=== PATIENT | female | born 1995 | race Hispanic/Latino ===

== ENCOUNTER 2020-06-15 12:59 | Emergency (ER) | payer OTHER, SELFPAY ==
--- NOTE | ~2020-06-15 | XR_ITS ---
EXAMINATION: XR ankle LT min 3V DATE: 06/15/2020 13:57 INDICATION: Left ankle injury and swelling and pain. TECHNIQUE: 4 views of left ankle were obtained. COMPARISON: None. FINDINGS: Bone alignment is normal. No fracture. There is mild osteoarthritis of talonavicular joint. There is an enthesophyte at plantar aspect of calcaneal tuberosity. Lateral ankle soft tissue swelli ng is noted. IMPRESSION: 1. Mild osteoarthritis of talonavicular joint. Reviewed, dictated and finalized at location B.
--- NOTE | ~2020-06-15 | CT_ITS ---
EXAMINATION: CT abdomen pelvis w con EXAM DATE: 06/15/2020 15:49 INDICATION: Abdominal pain nausea vomiting diarrhea. Sore throat. TECHNIQUE: Spiral CT of the abdomen and pelvis was performed following intravenous injection of 100 m L Omnipaque 350. Axial, coronal and sagittal images were reviewed. The dose-length product (DLP) fo r this examination was 245.02 mGy-cm. The exposure was tailored according to patient size (auto mA e xposure control), and iterative reconstruction (ASIR) was used as additional dose reduction technique . Comparison is made to prior examination from 11/25/2018. FINDINGS: The liver, spleen, adrenal glands and pancreas are unremarkable. Gallbladder is unremarkab le. No biliary obstruction. Portal and splenic veins are patent. Kidneys enhance symmetrically. T here is no hydronephrosis. The uterus and ovaries are unremarkable, no adnexal mass. The bladder i s unremarkable. There is no retroperitoneal or pelvic lymphadenopathy. The appendix is normal. The stomach and small bowel are unremarkable. Colonic fluid and possible mi ld diffuse colonic wall thickening, possible mild enterocolitis. No free intraperitoneal gas. The heart is normal in size. There are no pericardial or pleural effusions. The lung bases are unremar kable. The bones are unremarkable. IMPRESSION: 1. Possible enterocolitis, clinical correlation. Reviewed, dictated and finalized at location A.
--- NOTE | ~2020-06-15 | XR_ITS ---
EXAMINATION: XR hand LT min 3V DATE: 06/15/2020 13:57 INDICATION: Left hand injury. TECHNIQUE: 3 views of left hand were obtained. COMPARISON: None. FINDINGS: Bone alignment is normal. No fracture. There is mild osteoarthritis of third distal interph alangeal joint. IMPRESSION: 1. No acute fracture. Reviewed, dictated and finalized at location B. IMPRESSION: 1. No acute fracture.
[2020-06-15 13:16] VITALS: PULSE 100; RESP 18; TEMP 37.5; O2SAT 99
[2020-06-15 13:34] LABS: Basophils Percent Auto 0.2 % (0.2-1.2); Eosinophils Absolute Auto 0.1 K/mm3 (0-0.3); Eosinophils Percent Auto 0.5 % (0-4.4); Hematocrit 40.6 % (37.0-47.0); Hemoglobin 13.8 g/dL (12.0-15.0); Immature Granulocyte Absolute 0.04 K/mm3 (0.00-0.031); Immature Granulocyte Percent A 0.3 % (0-0.5); Lymphocytes Absolute Auto 2.52 K/mm3 (0.9-3.2); Lymphocytes Percent Auto 20.6 % (18.3-44.2); Mean Corpuscular Hemoglobin 30.7 pg (26-34); Mean Corpuscular Volume 90.4 fl (80-100); Mean Platelet Volume 10.9 fl (7.4-10.4); Monocytes Absolute Auto 0.9 K/mm3 (0.1-0.6); Monocytes Percent Auto 7.3 % (2.6-8.5); Neutrophils Absolute Auto 8.7 K/mm3 (1.3-6.7); Neutrophils Percent Auto 71.1 % (45.5-73.1); Platelet Count Result 317 k/mm3 (150-375); Red Blood Count 4.49 M/mm3 (4.2-5.4); Red Cell Distribution Width 12.9 % (11.5-14.5); White Blood Count 12.3 K/mm3 (4.5-10.0)
[2020-06-15 13:53] LABS: Alanine Aminotransferase 13 U/L (4-35); Albumin Level 4.6 g/dL (3.5-5.1); Alkaline Phosphatase 62 U/L (38-126); Anion Gap 10 mmol/L (8-16); Aspartate Amino Transferase 31 U/L (14-36); Bilirubin,Total 0.4 mg/dL (0.2-1.3); Blood Urea Nitrogen 6 mg/dL (7-17); Calcium 8.4 mg/dL (8.4-10.2); Carbon Dioxide 22 mmol/L (22-30); Chloride 109 mmol/L (98-107); Estimated CRCL calculation 123 ml/min; Estimated Glomerular Filt Rate > 60; Glucose 100 mg/dL (65-105); Lipase 98 U/L (23-300); Potassium 4.4 mmol/L (3.4-5.0); Sodium 141 mmol/L (137-145)
[2020-06-15 14:07] LABS: Add Urine Microscopic? YES; Appearance Urine Cloudy (Clear); Bacteria Urine Trace /hpf; Bilirubin Urine Negative (Negative); Blood Urine Negative (Negative); Budding Yeast Urine Present /hpf; Color Urine Yellow (Yellow); Glucose Urine UA Negative (Negative); Ketones Urine Negative (Negative); Leukocyte Esterase Ur Negative LEU/UL (Negative); Mucus Urine Rare /lpf; Nitrate Urine Negative (Negative); Protein Urine Negative (Negative); Specific Grav Ur 1.019 (1.001-1.035); Squamous Epithelial Cell Urine Moderate /hpf (Few); Urobilinogen Urine Negative mg/dL (<2.0)
[2020-06-15] MEDS: MORPHINE SULFATE 4 MG/ML INJ IV PUSH (15:13)
--- NOTE | 2020-06-15 16:11 | ED.GENADULT ---
HPI - General Adult General Chief complaint: Abdominal Pain Stated complaint: Multiple Complaints, Anxiety Time Seen by Provider: 06/15/20 14:43 History of Present Illness HPI narrative: Patient is a 24-year-old female who presents the ER with multiple complaints. Patient's first complaint is diarrhea ongoing for last month. Was treated for colitis at an outside hospital with Levaquin. She finished those antibiotics 1/2 to 2 weeks ago. No fevers or chills or sweats. Reports she still continues to have 4 loose stools a day. No blood in her stool. She reports abdominal cramping as well as nausea and vomiting. She reports mild pain in her left lower quadrant. No alleviating factors. She also has history of Sandy's esophagus and is taking a PPI to help control the symptoms. Additionally patient had a trip and fall before coming in and injured her left ankle and fell onto her left wrist. There is no deformity and she is able to ambulate and she has no new numbness or tingling. Related Data Home Medications Medication Instructions Recorded Confirmed dicyclomine mg 06/15/20 omeprazole 06/15/20 ondansetron HCl 06/15/20 Allergies Allergy/AdvReac Type Severity Reaction Status Date / Time milk Allergy Unknown UNKNOWN Verified 06/15/20 14:46 shrimp Allergy Unknown UNKNOWN Verified 06/15/20 14:46 Review of Systems Review of Systems: All systems reviewed & are unremarkable except as noted in HPI and below Constitutional: Constitutional: Denies chills, Denies fever(s) and Denies weakness ENT: Denies nasal congestion and Denies sore throat PMFSH Past Medical History Medical History (Updated 06/15/20 @ 17:37 by Raymond Mason MD) Sandy esophagus Surgical History Surgical History (Updated 06/15/20 @ 17:34 by Raymond Mason MD) H/O colonoscopy History of esophagogastroduodenoscopy (EGD) Social History Social History (Updated 06/15/20 @ 17:34 by Raymond Mason MD) Substance use: never Gender identity (if verbalized by the patient): Female Exam Narrative: Exam Narrative: GENERAL: Anxious-appearing, well-nourished, and in mild distress. HEAD: Normocephalic, atraumatic. CHEST: Clear to auscultation. No respiratory distress. HEART: Regular rate and rhythm. Normal peripheral pulses. ABDOMEN: Soft, tender palpation in left lower quadrant with mild guarding, nondistended, normal active bowel sounds. EXTREMITIES: Mildly tender over left ATFL. No swelling to the left wrist or ankle. Normal range of motion/strength. SKIN: Warm, dry, no rash. NEURO: Alert and oriented x3. PSYCH: Anxious mood with normal thought content. Course Course Emergency Course: Feels much better with Bentyl. Discharge home. Provide a stool sample. Vital Signs Vital signs: Vital Signs Temperature 99.5 F 06/15/20 13:16 Pulse Rate 100 06/15/20 13:16 Respiratory Rate 18 06/15/20 13:16 Pulse Oximetry 99 06/15/20 13:16 Temperature 99.5 F 06/15/20 13:16 Pulse Rate 100 06/15/20 13:16 Respiratory Rate 18 06/15/20 13:16 Pulse Oximetry 99 06/15/20 13:16 Medical Decision Making Vital Signs Vital Signs: Vital Signs Temperature 99.5 F 06/15/20 13:16 Pulse Rate 100 06/15/20 13:16 Respiratory Rate 18 06/15/20 13:16 Pulse Oximetry 99 06/15/20 13:16 Temperature 99.5 F 06/15/20 13:16 Pulse Rate 100 06/15/20 13:16 Respiratory Rate 18 06/15/20 13:16 Pulse Oximetry 99 06/15/20 13:16 Lab Data Result diagrams: 06/15/20 13:28 06/15/20 13:28 Labs: Lab Results 06/15/20 06/15/20 06/15/20 Range/Units 13:28 13:28 13:40 WBC 12.3 H (4.5-10.0) K/mm3 RBC 4.49 (4.2-5.4) M/mm3 Hgb 13.8 (12.0-15.0) g/dL Hct 40.6 (37.0-47.0) % MCV 90.4 (80-100) fl MCH 30.7 (26-34) pg MCHC 34.0 (32-36) g/dl RDW 12.9 (11.5-14.5) % Plt Count 317 (150-375) k/mm3 MPV 10.9 H (7.4-10.4) fl Immature Gran %
[2020-06-15] MEDS: ONDANSETRON INJ 4 MG/2 ML VIAL IV PUSH (17:08)
[2020-06-15] MEDS: DICYCLOMINE HCL INJ 20 MG/2 ML VIAL IM (17:08)
== END 2020-06-15 17:51 | disposition home or self-care (01) ==
PROVIDERS: Emergency Provider Emergency Medicine; PCP Family Medicine
DX: K52.9 Noninfective gastroenteritis and colitis, unspecified (principal); M19.072 Primary osteoarthritis, left ankle and foot; K22.70 Barrett's esophagus without dysplasia
CPT/HCPCS: 36415; 73130; 73610; 74177; 80053; 81001; 81025; 83690; 85025; 96372; 96374; 96375; 99284; J0500; J2270; J2405; Q9967

== ENCOUNTER 2022-01-28 13:07 | Emergency (ER) | payer OTHER, SELFPAY ==
--- NOTE | ~2022-01-28 | CT_ITS ---
EXAMINATION: CT abdomen pelvis w con DATE: 01/28/2022 16:31 INDICATION: Abdominal pain. Vomiting. TECHNIQUE: Computed tomography (CT) of the abdomen and pelvis was performed with 100 mL Omnipaque 350 intravenous contrast. Automated exposure control and iterative reconstruction technique were employe d. The dose-length product was 595.91 mGy-cm. COMPARISON: CT abdomen and pelvis 06/15/2020 FINDINGS: The visualized portions of the lung bases are clear without pneumonia or pleural effusion. The heart size is normal. No pericardial effusion. There is a small sliding hiatal hernia. The liver, gallbladder, spleen, pancreas, adrenal glands, and kidneys are normal. The appendix is normal. The b owel is decompressed. There are no pathologically enlarged lymph nodes. There is no free intraperiton eal fluid. The bones are unremarkable. IMPRESSION: 1. Small sliding hiatal hernia. Reviewed, dictated and finalized at location A.
[2022-01-28 13:08] VITALS: BP 112/69; PULSE 72; RESP 20; TEMP 36.7; O2SAT 100
[2022-01-28 13:31] LABS: Basophils Percent Auto 0.1 % (0.2-1.2); Hematocrit 39.6 % (37.0-47.0); Hemoglobin 13.2 g/dL (12.0-15.0); Immature Granulocyte Absolute 0.05 K/mm3 (0.00-0.031); Immature Granulocyte Percent A 0.3 % (0-0.5); Lymphocytes Absolute Auto 1.12 K/mm3 (0.9-3.2); Lymphocytes Percent Auto 7.8 % (18.3-44.2); Mean Corpuscular HGB Conc 33.3 g/dl (32-36); Mean Corpuscular Hemoglobin 31.4 pg (26-34); Mean Corpuscular Volume 94.1 fl (80-100); Mean Platelet Volume 10.5 fl (7.4-10.4); Monocytes Absolute Auto 0.3 K/mm3 (0.1-0.6); Monocytes Percent Auto 1.8 % (2.6-8.5); Neutrophils Absolute Auto 12.9 K/mm3 (1.3-6.7); Platelet Count Result 320 k/mm3 (150-375); Red Blood Count 4.21 M/mm3 (4.2-5.4); Red Cell Distribution Width 12.2 % (11.5-14.5); White Blood Count 14.4 K/mm3 (4.5-10.0)
[2022-01-28 13:45] LABS: Alanine Aminotransferase 18 U/L (4-35); Albumin Level 4.2 g/dL (3.5-5.1); Alkaline Phosphatase 72 U/L (38-126); Anion Gap 5 mmol/L (8-16); Aspartate Amino Transferase 25 U/L (14-36); Bilirubin,Total 0.2 mg/dL (0.2-1.3); Blood Urea Nitrogen 6 mg/dL (7-17); Calcium 8.2 mg/dL (8.4-10.2); Carbon Dioxide 27 mmol/L (22-30); Chloride 110 mmol/L (98-107); Estimated CRCL calculation 148 ml/min; Estimated Glomerular Filt Rate > 60; Glucose 138 mg/dL (65-110); Lipase 217 U/L (23-300); Potassium 3.7 mmol/L (3.4-5.0); Sodium 142 mmol/L (137-145)
--- NOTE | 2022-01-28 14:50 | ED.ABDPAIN ---
HPI - Abdominal Pain General Chief Complaint: Abdominal Pain Stated Complaint: vomiting, abd. Time Seen by Provider: 01/28/22 14:32 History of Present Illness HPI narrative: 26-year-old female presented to emergency room with complaints of acute onset nausea vomiting diarrhea that began this morning. Patient has a recent history of colitis and Sandy's esophagus that was diagnosed by her GI physician Dr. Bhatia. Patient states that she was admitted at [facility] 4 weeks ago with similar symptoms. States she has been taking Phenergan without relief. Regarding nausea vomiting diarrhea is associated with body aches, headache, abdominal pain. Related Data Home Medications Medication Instructions Recorded Confirmed dicyclomine mg 06/15/20 omeprazole 06/15/20 ondansetron HCl 06/15/20 Allergies Allergy/AdvReac Type Severity Reaction Status Date / Time milk Allergy Unknown UNKNOWN Verified 01/28/22 15:32 shrimp Allergy Unknown UNKNOWN Verified 01/28/22 15:32 Review of Systems Review of Systems: CONSTITUTIONAL: Denies fever, chills, or sweats. EYES: Denies visual changes, redness, or discharge. ENT: Denies rhinorrhea, congestion, sore throat, or otalgia. CARDIOVASCULAR: Denies chest pain, palpitations, or edema. RESPIRATORY: Denies cough or dyspnea. GASTROINTESTINAL: Reports abdominal pain, nausea, vomiting, diarrhea. GENITOURINARY: Denies dysuria or hematuria. SKIN: Denies rash or itching. MUSCULOSKELETAL: Denies back pain, joint pain, or myalgia. NEUROLOGIC: Denies headache, numbness, dizziness, or weakness. PSYCHIATRIC: Reports anxiety. PMFSH Past Medical History Medical History Sandy esophagus Surgical History Surgical History H/O colonoscopy History of esophagogastroduodenoscopy (EGD) Social History Social History Substance use: never Gender identity (if verbalized by the patient): Female Exam Narrative: GENERAL: Patient is well-appearing, well-nourished and moderately anxious. HEAD: Normocephalic, atraumatic. EYES: PERRLA and EOMI. ENT: Nares clear, no rhinorrhea or epistaxis. Mucous membranes dry CHEST: Clear to auscultation. No respiratory distress. No wheezes rales or rhonchi HEART: Regular rate and rhythm. No murmur heard. Normal peripheral pulses. ABDOMEN: Soft, diffuse tenderness, nondistended, hyperactive bowel sounds. EXTREMITIES: Normal range of motion. No edema. SKIN: Warm, dry, no rash. NEURO: No focal deficits. Alert and oriented x3. PSYCH: Anxious and tearful. Course Vital Signs Vital signs: Vital Signs Temperature 36.7 C 01/28/22 13:08 Pulse Rate 72 01/28/22 13:08 Respiratory Rate 20 01/28/22 13:08 Blood Pressure 112/69 01/28/22 13:08 Pulse Oximetry 100 01/28/22 13:08 Temperature 36.7 C 01/28/22 13:08 Pulse Rate 72 01/28/22 13:08 Respiratory Rate 20 01/28/22 13:08 Blood Pressure 112/69 01/28/22 13:08 Pulse Oximetry 100 01/28/22 13:08 MDM - Abdominal Pain MDM Narrative Medical decision making narrative: 26-year-old very anxious and histrionic female presents to emergency room with acute onset of nausea vomiting and diarrhea that started this morning. Patient was complaining of abdominal pain that radiated into her back. Was given dicyclomine, Reglan, and Toradol and 2 L of fluid for her symptoms. The CAT scan showed no acute intra-abdominal abnormalities. CBC shows slight elevation, likely due to her vomiting and diarrhea. Blood glucose level was slightly elevated otherwise CMP was unremarkable. UA was clean for urinary tract infection. Discussed with patient that her exam and lab work were largely unremarkable, so patient proceeded to leave AMA. Discussed patient the risks and benefits of leaving without completion of her evaluation, patient stated unders
[2022-01-28] MEDS: METOCLOPRAMIDE HCL INJ 10 MG/2 ML VIAL IV PUSH (15:38)
[2022-01-28] MEDS: diphenhydrAMINE HCl INJ 50 MG/ML VIAL 25 MG IV PUSH (15:39)
[2022-01-28] MEDS: SODIUM CHLORIDE 0.9% IV 1,000 ML 999 ML IV CONT (15:42)
[2022-01-28] MEDS: KETOROLAC 30 MG/ML VIAL (*BKC) IV PUSH (16:51)
[2022-01-28] MEDS: DICYCLOMINE HCL INJ 20 MG/2 ML VIAL IM (16:56)
[2022-01-28 17:00] VITALS: BP 138/87; PULSE 74; RESP 19; O2SAT 99
[2022-01-28 17:07] LABS: Appearance Urine Clear (Clear); Bilirubin Urine Negative (Negative); Blood Urine 3+ (Negative); Color Urine Yellow (Yellow); Glucose Urine UA Negative (Negative); Ketones Urine Negative (Negative); Leukocyte Esterase Ur Negative LEU/UL (Negative); Nitrate Urine Negative (Negative); Protein Urine Trace mg/dL (Negative); Urobilinogen Urine 0.2 mg/dL (<2.0); pH Urine 8.5 (5.0-9.0)
[2022-01-28 17:19] VITALS: BP 135/87; PULSE 99; RESP 19; O2SAT 97
[2022-01-28 17:19] LABS: Bacteria Urine Trace /hpf; Mucus Urine Rare /lpf; RBC Urine 0-2 /hpf (0-2); Squamous Epithelial Cell Urine Many /hpf (Few); WBC Urine 0-3 /hpf
[2022-01-28 17:21] LABS: Add Urine Microscopic? YES
== END 2022-01-28 17:19 | disposition left against medical advice (07) ==
PROVIDERS: Emergency Medicine; Emergency Provider Nurse Practitioner Family; PCP Family Medicine
DX: K52.9 Noninfective gastroenteritis and colitis, unspecified (principal); K22.70 Barrett's esophagus without dysplasia; K44.9 Diaphragmatic hernia without obstruction or gangrene
CPT/HCPCS: 36415; 74177; 80053; 81001; 81025; 83690; 85025; 96361; 96372; 96374; 96375; 99284; J0500; J1200; J1885; J2765; J7030; Q9967

== ENCOUNTER 2024-10-06 09:05 | Emergency (ER) | payer OTHER, SELFPAY ==
[2024-10-06 09:21] VITALS: BP 127/68; PULSE 79; RESP 16; TEMP 36.9; O2SAT 100
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
[2024-10-06] MEDS: cefTRIAXone 1 GM, LIDOCAINE HCL 1% LOCAL INJ 2.1 ML IM (09:53)
== END 2024-10-06 10:13 | disposition home or self-care (01) ==
PROVIDERS: Emergency Provider Nurse Practitioner Family
DX: M71.121 Other infective bursitis, right elbow (principal); B95.61 Methicillin susceptible Staphylococcus aureus infection as the cause of diseases classified elsewhere; K22.70 Barrett's esophagus without dysplasia
CPT/HCPCS: 20605; 87070; 87075; 87181; 87205; 96372; 99213; G0463; J0696; J2003